=== PATIENT | male | born 2000 | race Caucasian/White ===

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

== ENCOUNTER 2021-07-28 03:53 | Emergency (ER) | payer MEDICAID ==
[~2021-07-28] VITALS: Ht 175.3 cm; Wt 98.0 kg
[2021-07-28 04:26] VITALS: BP 163/90
[2021-07-28] MEDS ORDERED: AMOX-424 MT (05:21)
[2021-07-28] MEDS ORDERED: IBUP-2029 MT (05:54)
[2021-07-28] MEDS ORDERED: IBUPROFEN 600MG TABLET PO ONE (06:00)
== END 2021-07-28 06:12 | disposition home or self-care (01) ==
LOC: ER 03:53
DX: H73.21 Unspecified myringitis, right ear (principal)
CPT/HCPCS: 99283; Z7610